=== PATIENT | female | born 1955 | race Caucasian/White ===

== ENCOUNTER → 2020-09-21 | Outpatient (CLI) | payer MEDICARE, BC ==
[~2020-09-21] MED LIST: CEFUROXIME500 MG PO
== END ==
LOC: KOH-I 14:00
DX: S82.892A Other fracture of left lower leg, initial encounter for closed fracture (principal)
CPT/HCPCS: 73610; 73630

== ENCOUNTER → 2020-09-28 | Outpatient (CLI) | payer MEDICARE, BC | LOC: MAMO 08:30 | DX: Z12.31 Encounter for screening mammogram for malignant neoplasm of breast (principal); M85.80 Other specified disorders of bone density and structure, unspecified site; M81.0 Age-related osteoporosis without current pathological fracture | CPT/HCPCS: 77063; 77067; 77080 ==

== ENCOUNTER → 2020-10-09 | Outpatient (CLI) | payer MEDICARE, BC | LOC: EXRD 13:00 | DX: S91.001A Unspecified open wound, right ankle, initial encounter (principal) | CPT/HCPCS: 93926 ==

== ENCOUNTER 2021-01-09 14:02 | Inpatient (IN) | payer MEDICARE, BC ==
[~2021-01-09] VITALS: Ht 160 cm; Wt 59.6 kg
[2021-01-09 15:02] LABS: HEMOGLOBIN 10.7 gm/dl (12.3-15.3); RED BLOOD COUNT 3.73 M/UL (4.00-5.10); WHITE BLOOD COUNT 28.8 K/UL (4.5-11.0)
[2021-01-09] MEDS ORDERED: LIPITOR40 MG PO (19:55)
[2021-01-09] MEDS ORDERED: MAGOX 400400 MG PO (19:56)
[2021-01-09] MEDS ORDERED: HYDROCODON-ACE1 EAC4 PO (19:56)
[2021-01-09] MEDS ORDERED: KEPPRA500 MG PO (19:56)
[2021-01-09] MEDS ORDERED: PROTONIX 40 MG40 M1 PO (19:56)
[2021-01-09] MEDS ORDERED: TRAZODONE HCL100 MG PO (19:57)
[2021-01-09] MEDS ORDERED: TYLENOL325 MG PO (19:57)
[2021-01-10 03:51] LABS: HEMOGLOBIN 8.8 gm/dl (12.3-15.3); WHITE BLOOD COUNT 28.5 K/UL (4.5-11.0)
[2021-01-10 03:58] LABS: RED BLOOD COUNT 3.1 M/UL (4.00-5.10)
[2021-01-10 06:50] LABS: ACINETOBACTER BAUMANNII Not Detected (Negative); CANDIDA ALBICANS Not Detected (Negative); CANDIDA KRUSEI Not Detected (Negative); CANDIDA TROPICALIS Not Detected (Negative); ENTEROCOCCUS Not Detected (Negative); HAEMOPHILUS INFLUENZAE Not Detected (Negative); KLEBSIELLA OXYTOCA Not Detected (Negative); KLEBSIELLA PNEUMONIAE Not Detected (Negative); KPC-CARBAPENEM-RESISTANCE GENE Not Detected (Negative); PROTEUS Not Detected (Negative); PSEUDOMONAS AERUGINOSA Not Detected (Negative); SERRATIA MARCESANS Not Detected (Negative); STAPHYLOCOCCUS Not Detected (Negative); STAPHYLOCOCCUS AUREUS Not Detected (Negative); STREP AGALACTIAE (GROUP B) Not Detected (Negative); STREP PYOGENES (GROUP A) Not Detected (Negative); STREPTOCOCCUS Not Detected (Negative); mecA (METHICILLIN RESIST GENE Not Detected (Negative); vanA/B (VANCOMYCIN RESIST GENE Not Detected (Negative)
[2021-01-10 08:20] LABS: ESCHERICHIA COLI DETECTED (Negative)
--- NOTE | 2021-01-10 14:57 | NUR ---
1115 - WITH POOR VENOUS ACCESS. MD AWARE. SURGERY ON FLOOR. TRIPLE LUMEN CENTRAL LINE INSERTED TO RIGHT SUBCLAVIAN USING ASEPTIC TECHNIQUE. PT TOLERATED PROCEDURE WELL.
--- NOTE | 2021-01-11 00:04 | NUR ---
Patient's breathing labored, 02 saturation 86-88%. MD notified. New orders for Chest x-ray, Duonebs Q6 Prn, and discontinue IV fluids at 100ml/hr. Patient 02 titration to 4L via NC at this time. WCTM
--- NOTE | 2021-01-11 01:58 | NUR ---
Called impression results of chest x-ray to Dr. Page via telephone at this time. No new orders. TM
[2021-01-11 05:55] LABS: HEMOGLOBIN 8.9 gm/dl (12.3-15.3); RED BLOOD COUNT 3.13 M/UL (4.00-5.10); WHITE BLOOD COUNT 23.1 K/UL (4.5-11.0)
--- NOTE | 2021-01-11 13:21 | NUR ---
0910 - DR ABREU ON FLOOR TO SEE PT. CONSULT FOR DR DIAZ OBTAINED. DR DIAZ NOTIFIED AND STATES HE WILL SEE PT THIS PM 1005 - PT WITH EPISODE OF AFIB WITH RVR UP TO 170'S. PT ASYMPTOMATIC. NUTRITIONAL SERVICES COOK CONSULTED.
[2021-01-12 07:48] LABS: HEMOGLOBIN 9.2 gm/dl (12.3-15.3); RED BLOOD COUNT 3.24 M/UL (4.00-5.10)
[2021-01-12 07:52] LABS: WHITE BLOOD COUNT 14.6 K/UL (4.5-11.0)
[2021-01-14 10:18] LABS: RED BLOOD COUNT 3.12 M/UL (4.00-5.10); WHITE BLOOD COUNT 16.1 K/UL (4.5-11.0)
[2021-01-16 03:35] LABS: HEMOGLOBIN 8.4 gm/dl (12.3-15.3); RED BLOOD COUNT 2.9 M/UL (4.00-5.10); WHITE BLOOD COUNT 19.2 K/UL (4.5-11.0)
[2021-01-16 08:13] LABS: ATYPICAL PANCA <1:20 titer (Neg:<1:20); CYTOPLASMIC (C-ANCA) <1:20 titer (Neg:<1:20); PERINUCLEAR (P-ANCA) <1:20 titer (Neg:<1:20)
[2021-01-17 03:52] LABS: HEMOGLOBIN 8.3 gm/dl (12.3-15.3); RED BLOOD COUNT 2.87 M/UL (4.00-5.10); WHITE BLOOD COUNT 18.1 K/UL (4.5-11.0)
[2021-01-17] MEDS ORDERED: LEVOFLOXACIN750 MG PO (08:13)
[2021-01-17] MEDS ORDERED: ELIQUIS 2.5 MG2.5 MG PO (08:13)
[2021-01-17] MEDS ORDERED: LOPRESSOR 25 MG25 MG PO (08:13)
[2021-01-17 09:13] LABS: HBSAG SCREEN Negative (Negative); HEP A AB, IGM Negative (Negative); HEP B CORE AB, IGM Negative (Negative); HEP C VIRUS AB <0.1 (0.0-0.9)
[2021-01-17 15:14] LABS: A/G RATIO 1.1 (0.7-1.7); ALBUMIN 2.5 g/dL (2.9-4.4); ALPHA-1-GLOBULIN 0.3 g/dL (0.0-0.4); ALPHA-2-GLOBULIN 0.8 g/dL (0.4-1.0); BETA GLOBULIN 0.5 g/dL (0.7-1.3); GAMMA GLOBULIN 0.8 g/dL (0.4-1.8); GLOBULIN, TOTAL 2.4 g/dL (2.2-3.9); IMMUNOFIXATION RESULT, SERUM Comment: (.); IMMUNOGLOBULIN A, QN, SERUM 330 mg/dL (87-352); IMMUNOGLOBULIN G, QN, SERUM 666 mg/dL (586-1602); IMMUNOGLOBULIN M, QN, SERUM 182 mg/dL (26-217); M-SPIKE Not Observed g/dL (Not Observed); PROTEIN, TOTAL, SERUM 4.9 g/dL (6.0-8.5)
--- NOTE | 2021-01-17 16:11 | NUR ---
1538 - called placed to [facility] to attempt to give report. typing secretary advised would have nurse to return my call to get report.
[2021-01-18] MEDS ORDERED: BUMETANIDE1 MG PO (17:47)
== END 2021-01-17 11:39 | disposition home health service (06) | DRG 698 ==
LOC: ER1 14:02 → CCU 18:49 → CDU 18:49 → PROG CARE 18:49 → CCU 01-10 10:11 → PROG CARE 01-14 17:50
PROVIDERS: Internal Medicine; Internal Medicine Nephrology; Physician Assistant; Surgery; ADMIT Internal Medicine
PROC: 3E033XZ Introduction of Vasopressor into Peripheral Vein, Percutaneous Approach (ICD-10-PCS; principal; 2021-01-10)
PROC: 05HM33Z Insertion of Infusion Device into Right Internal Jugular Vein, Percutaneous Approach (ICD-10-PCS; 2021-01-10)
DX: T83.518A Infection and inflammatory reaction due to other urinary catheter, initial encounter (principal); R65.21 Severe sepsis with septic shock; A41.51 Sepsis due to Escherichia coli [E. coli]; K72.00 Acute and subacute hepatic failure without coma; N17.0 Acute kidney failure with tubular necrosis; E87.2 Acidosis; E87.1 Hypo-osmolality and hyponatremia; I48.92 Unspecified atrial flutter; J90 Pleural effusion, not elsewhere classified; I69.352 Hemiplegia and hemiparesis following cerebral infarction affecting left dominant side; I47.1 Supraventricular tachycardia; Z20.822 Contact with and (suspected) exposure to COVID-19; E87.6 Hypokalemia; M81.0 Age-related osteoporosis without current pathological fracture; K21.9 Gastro-esophageal reflux disease without esophagitis; E78.5 Hyperlipidemia, unspecified; I10 Essential (primary) hypertension; G40.909 Epilepsy, unspecified, not intractable, without status epilepticus; E88.09 Other disorders of plasma-protein metabolism, not elsewhere classified; G89.29 Other chronic pain; I48.0 Paroxysmal atrial fibrillation; R74.01 Elevation of levels of liver transaminase levels; R94.5 Abnormal results of liver function studies; R33.8 Other retention of urine; Y84.6 Urinary catheterization as the cause of abnormal reaction of the patient, or of later complication, without mention of misadventure at the time of the procedure; Z90.89 Acquired absence of other organs; Z90.710 Acquired absence of both cervix and uterus; Z98.890 Other specified postprocedural states; Z79.82 Long term (current) use of aspirin; Z79.899 Other long term (current) drug therapy; Z82.49 Family history of ischemic heart disease and other diseases of the circulatory system
CPT/HCPCS: ECHO; 36415; 51702; 71045; 80048; 80053; 80074; 80202; 81001; 82550; 82553; 82570; 82784; 82803; 83520; 83605; 83735; 83874; 83883; 84132; 84155; 84156; 84165; 84484; 85025; 85027; 86256; 86334; 87040; 87077; 87086; 87150; 87186; 93005; 93306; 94640; 94664; 94760; 96374; 97110-GP-CQ; 97162; 97166; 99285; J0692; J0696; J1650; J1720; J1940; J2185; J2370; J2405; J2543; J3370; J7030; J7070; U0002

== ENCOUNTER 2021-01-18 15:26 | Emergency (ER) | payer MEDICARE, BC ==
[~2021-01-18 15:26] MED LIST changes: +ELIQUIS 2.5 MG2.5 MG PO; +HYDROCODON-ACE1 EAC4 PO; +KEPPRA500 MG PO; +LEVOFLOXACIN750 MG PO; +LIPITOR40 MG PO; +LOPRESSOR 25 MG25 MG PO; +MAGOX 400400 MG PO; +PROTONIX 40 MG40 M1 PO; +TRAZODONE HCL100 MG PO; +TYLENOL325 MG PO
[2021-01-18 16:42] LABS: HEMOGLOBIN 10.2 gm/dl (12.3-15.3); RED BLOOD COUNT 3.44 M/UL (4.00-5.10); WHITE BLOOD COUNT 20.3 K/UL (4.5-11.0)
[2021-01-18 17:13] LABS: BUN/CREATININE RATIO 17 (0-10)
[2021-01-18] MEDS ORDERED: BUMETANIDE1 MG PO (17:47)
== END 2021-01-18 18:35 | disposition home or self-care (01) ==
LOC: ER1 15:26
PROVIDERS: Nurse Practitioner
DX: R60.9 Edema, unspecified (principal); I25.10 Atherosclerotic heart disease of native coronary artery without angina pectoris; I10 Essential (primary) hypertension; Z20.822 Contact with and (suspected) exposure to COVID-19
CPT/HCPCS: 51702; 71045; 80053; 82550; 82553; 83735; 83874; 84484; 85025; 85610; 93005; 96374; 99285; U0002

== ENCOUNTER 2021-01-23 15:06 | Emergency (ER) | payer MEDICARE, BC ==
[~2021-01-23 15:06] MED LIST changes: +BUMETANIDE1 MG PO
[2021-01-23 15:43] LABS: HEMOGLOBIN 10.2 gm/dl (12.3-15.3); RED BLOOD COUNT 3.5 M/UL (4.00-5.10); WHITE BLOOD COUNT 11.5 K/UL (4.5-11.0)
[2021-01-23] MEDS ORDERED: KLOR-CON M1010 MEQ PO (16:14)
== END 2021-01-23 17:38 | disposition home or self-care (01) ==
LOC: ER1 15:06
PROVIDERS: Student in an Organized Health Care Education/Training Program
DX: E87.6 Hypokalemia (principal); I82.412 Acute embolism and thrombosis of left femoral vein; I48.91 Unspecified atrial fibrillation; Z86.73 Personal history of transient ischemic attack (TIA), and cerebral infarction without residual deficits; Z87.891 Personal history of nicotine dependence
CPT/HCPCS: 80053; 85025; 93005; 93971; 96374; 99285; J3475